=== PATIENT | male | born 1965 | race Caucasian/White ===

== ENCOUNTER → 2017-05-07 | Outpatient (CLI) | payer OTHER ==
--- NOTE | 2017-05-07 12:31 | XCELERA REPORT ---
[address] [address] Lower Extremity Arterial Evaluation Name: RICHARD SULLIVAN Age: 51 yrs Gender: Male : 1965 Patient Status: Outpatient Patient Location: Study Date: 05/07/2017 10:06 AM Procedure: A color flow and duplex scan of the lower extremity arteries was performed bilaterally with velocity and waveform analysis. Reason For Study: DYSPNEA, PAIN Ordering Physician: ABIODUN BAHENA PA-C Performed By: Raghav Botello Measurements and Calculations Right Left SENIOR ANDROID DEVELOPER PSV 154.9 196.1 cm/sec Prox PFA PSV -82.1 133.6 cm/sec Dist SFA PSV -128.9 -151.0 cm/sec Dist Pop A PSV 135.1 -117.0 cm/sec Dist HUEY PSV 127.1 97.6 cm/sec Dist DREDGE OPERATOR SUPERVISOR PSV 112.5 119.4 cm/sec Travis Pedis PSV 129.6 137.5 cm/sec Right Side Arterial Evaluation Normal velocity and triphasic waveforms noted from the Common Femoral artery to the infrageniculate vessels. 0 % stenosis noted. Ankle Brachial index is 1.36. Left Side Arterial Evaluation Normal velocity and triphasic waveforms noted from the Common Femoral artery to the infrageniculate vessels. 0 % stenosis noted. Ankle Brachial index is 1.36. Interpretation Summary There is no evidence of hemodynamically significant arterial occlusive disease bilaterally at rest. : ABIODUN BAHENA PA-C > Jose M Davis
--- NOTE | 2017-05-07 22:44 | XCELERA REPORT ---
[address] [address] Transthoracic Echocardiogram Report Name: RICHARD SULLIVAN Age: 51 yrs Gender: Male : 1965 Patient Status: Outpatient Patient Location: Study Date: 05/07/2017 09:33 AM Height: 69 in Weight: 240 lb BSA: 2.2 m2 Procedure: A complete two-dimensional transthoracic echocardiogram was performed (2D, M-mode, spectral and color flow Doppler). The study was technically difficult with many images being suboptimal in quality. Reason For Study: DYSPNEA, PAIN Ordering Physician: ABIODUN BAHENA PA-C Performed By: Raghav Botello Interpretation Summary The left ventricular ejection fraction is within normal limits. LV diastolic function could not be adequately assessed. There is borderline concentric left ventricular hypertrophy. The left ventricle is grossly normal size. Wall motion cannot be accurately commented on, but no definite regional wall motion abnormalities noted. The right ventricular systolic function is normal. Borderline right atrial enlargement. The left atrium is mildly dilated. There is no mitral valve stenosis. There is a trace to mild amount of mitral regurgitation There is no aortic valve stenosis No aortic regurgitation is present. There is a trace to mild amount of tricuspid regurgitation There is mild pulmonary hypertension by echo Best estimated right ventricular systolic pressure is elevated at 30- 40mmHg. The aortic root is not well visualized but is probably normal size. The inferior vena cava appeared normal and decreased > 50% with respiration (RAP 5-10 mmHg) Minimal pericardial effusion. MMode/2D Measurements \T\ Calculations RVDd: 2.7 cm LVIDd: 5.5 cm FS: 33.0 % Ao root diam: 3.2 cm IVSd: 0.98 cm LVIDs: 3.7 cm EDV(Teich): 148.1 ml LVPWd: 1.1 cm ESV(Teich): 57.8 ml Ao root area: 8.2 cm2 EF(Teich): 61.0 % LA dimension: 4.2 cm Doppler Measurements \T\ Calculations MV E max iain: MV P1/2t max iain: Ao V2 max: LV V1 max P.7 cm/sec 82.7 cm/sec 139.6 cm/sec 2.9 mmHg MV A max iain: MV P1/2t: 57.3 msec Ao max PG: LV V1 max: 69.7 cm/sec 7.8 mmHg 85.4 cm/sec MV E/A: 1.1 MVA(P1/2t): 3.8 cm2 MV dec slope: 422.6 cm/sec2 PA V2 max: TR max iain: RAP systole: 104.3 cm/sec 236.6 cm/sec 10.0 mmHg PA max PG: TR max P.5 mmHg 4.3 mmHg RVSP(TR): 32.5 mmHg Left Ventricle The left ventricle is grossly normal size. There is borderline concentric left ventricular hypertrophy. The left ventricular ejection fraction is within normal limits. LV diastolic function could not be adequately assessed. Wall motion cannot be accurately commented on, but no definite regional wall motion abnormalities noted. Right Ventricle The right ventricle is grossly normal size. There is normal right ventricular wall thickness. The right ventricular systolic function is normal. Atria Borderline right atrial enlargement. The left atrium is mildly dilated. Interarterial septum not well visualized and not well dopplered. Cannot comment on ASD/PFO presence. Mitral Valve The mitral valve is grossly normal. There is no mitral valve stenosis. There is a trace to mild amount of mitral regurgitation. Aortic Valve The aortic valve is grossly normal. There is no aortic valve stenosis. No aortic regurgitation is present. Tricuspid Valve The tricuspid valve is not well visualized, but is grossly normal. There is no tricuspid stenosis. There is a trace to mild amount of tricuspid regurgitation. There is mild pulmonary hypertension by echo. Best estimated right ventricular systolic pressure is elevated at 30-40mmHg. Pulmonic Valve The pulmonic valve is not well visualized. Great Vessels The aortic root is not well visualized but is probably normal size. The inferior vena cava appeared normal and decreased > 50% with respiration (RAP 5-10 mmHg). Effusions Minimal pericardial effusion. : ABIODUN BAHENA PA-C > Romana Garcia
== END ==
LOC: SP 09:14
PROVIDERS: ATTEND Physician Assistant
DX: R06.00 Dyspnea, unspecified (principal); M79.606 Pain in leg, unspecified
CPT/HCPCS: 93306; 93925

== ENCOUNTER 2017-09-09 16:11 | Emergency (ER) | payer OTHER ==
[2017-09-09] MEDS ORDERED: ONDANSETRON HCL INJ/PF 4 MG/2 ML SDV IV ONE (16:43)
[2017-09-09] MEDS ORDERED: NORMAL SALINE 1000 ML 1,000 ML IV ONE (16:43)
[2017-09-09] MEDS ORDERED: MORPHINE SULFATE 10 MG/ML INJ IV ONE ×3 (16:44→22:33)
--- NOTE | 2017-09-09 16:45 | ER Document Report ---
ED Medical Screen (RME) - General Chief Complaint: Back Pain Stated Complaint: SIDE PAIN AND SWELLING/POST BACK SURGERY Time Seen by Provider: 09/09/17 16:43 Notes: Patient had thoracic spine surgery approximately 1 week ago. Now he has swelling on both sides of his abdomen with severe pain. He denies any vomiting. He does have decreased appetite. He states his bowel movements are normal. He states he is taking oxycodone, Robaxin, Valium, and Neurontin but gets no relief of the pain. TRAVEL OUTSIDE OF THE [place] IN LAST 30 DAYS: No - Related Data Allergies/Adverse Reactions: amlodipine [From [employer]] Allergy (Verified 09/09/17 16:20) Past Medical History - Past Medical History Cardiac Medical History: Reports: Hx Coronary Artery Disease - had cath 2 yrs ago with a 40% lesion only, Hx Hypercholesterolemia, Hx Hypertension Denies: Hx Heart Attack Pulmonary Medical History: Reports: Hx Asthma - say asthma but I have scarring from radiation Denies: Hx Bronchitis, Hx COPD, Hx Pneumonia Neurological Medical History: Denies: Hx Cerebrovascular Accident, Hx Seizures Renal/ Medical History: Denies: Hx Peritoneal Dialysis Musculoskeltal Medical History: Reports Hx Arthritis Past Surgical History: Reports: Hx Orthopedic Surgery. Denies: Hx Pacemaker - Immunizations Hx Diphtheria, Pertussis, Tetanus Vaccination: Yes Physical Exam - Vital signs Vitals: Temp Pulse Resp BP Pulse Ox 98.7 F 72 18 118/59 L 97 09/09/17 16:20 09/09/17 16:20 09/09/17 16:20 09/09/17 16:20 09/09/17 16:20 Course - Vital Signs Vital signs: Temp Pulse Resp BP Pulse Ox 98.7 F 72 18 118/59 L 97 09/09/17 16:20 09/09/17 16:20 09/09/17 16:20 09/09/17 16:20 09/09/17 16:20
[2017-09-09 17:08] LABS: APPEARANCE,URINE CLEAR; BILIRUBIN,URINE NEGATIVE (NEGATIVE); GLUCOSE, URINE NEGATIVE (NEGATIVE); KETONES,URINE NEGATIVE (NEGATIVE); LEUKOCYTE ESTERASE,URINE NEGATIVE (NEGATIVE); NITRITE,URINE NEGATIVE (NEGATIVE); PROTEIN,URINE NEGATIVE (NEGATIVE); URINE SPECIFIC GRAVITY 1.014; UROBILINOGEN,URINE NEGATIVE mg/dL (<2.0)
[2017-09-09 17:20] LABS: ABSOLUTE BASOPHILS # (AUTO) 0.1 10^3/uL (0.0-0.2); ABSOLUTE EOSINOPHILS # (AUTO) 0.4 10^3/uL (0.0-0.6); ABSOLUTE LYMPHOCYTES (AUTO) 1.6 10^3/uL (0.5-4.7); ABSOLUTE MONOCYTES (AUTO) 0.6 10^3/uL (0.1-1.4); ABSOLUTE NEUT (AUTO) 6.1 10^3/uL (1.7-8.2); BASOPHILS % (AUTO) 1.2 % (0-2); EOSINOPHILS % (AUTO) 4.3 % (0-6); HEMATOCRIT 34.3 % (37.9-51.0); HEMOGLOBIN 11.8 g/dL (13.5-17.0); HGB HCT DIFFERENCE 1.1; MEAN CORPUSCULAR HEMOGLOBIN 27.4 pg (27.0-33.4); MEAN CORPUSCULAR HGB CONC 34.5 g/dL (32.0-36.0); MEAN CORPUSCULAR VOLUME 80 fl (80-97); MONOCYTES % (AUTO) 7.3 % (3-13); RED BLOOD COUNT 4.32 10^6/uL (4.35-5.55); RED CELL DISTRIBUTION WIDTH 13.6 % (11.5-14.0); SEGMENTED NEUTROPHILS % (AUTO) 69.2 % (42-78); WHITE BLOOD COUNT 8.7 10^3/uL (4.0-10.5)
[2017-09-09 17:53] LABS: ALANINE AMINOTRANSFERASE 73 U/L (21-72); ALBUMIN 4.1 g/dL (3.5-5.0); ALKALINE PHOSPHATASE 66 U/L (38-126); ANION GAP 15 (5-19); ASPARTATE AMINO TRANSFERASE 39 U/L (17-59); BILIRUBIN,DIRECT 0.4 mg/dL (0.0-0.4); BILIRUBIN,TOTAL 0.6 mg/dL (0.2-1.3); BLOOD UREA NITROGEN 14 mg/dL (7-20); CALCIUM 8.9 mg/dL (8.4-10.2); CARBON DIOXIDE 27 mmol/L (22-30); CHLORIDE 100 mmol/L (98-107); CREATININE RESULT 0.78 mg/dL (0.52-1.25); GLUCOSE 130 mg/dL (75-110); LIPASE 68.3 U/L (23-300); POTASSIUM 4.4 mmol/L (3.6-5.0); SODIUM 141.7 mmol/L (137-145); TOTAL PROTEIN 6.9 g/dL (6.3-8.2)
--- NOTE | 2017-09-09 18:57 | ER Document Report ---
ED Neck/Back Problem - General Chief Complaint: Back Pain Stated Complaint: SIDE PAIN AND SWELLING/POST BACK SURGERY Time Seen by Provider: 09/09/17 16:43 Mode of Arrival: Ambulatory Information source: Patient TRAVEL OUTSIDE OF THE [place] IN LAST 30 DAYS: No - HPI Patient complains to provider of: Pain, Upper back - AND FLANKS, MORE ON LEFT Onset: Last week Onset: Gradual Timing: Constant Quality of pain: Dull, Pressure, Other - SORENESS Severity: Moderate Associated symptoms: Fever - 100.9 F, NIGHTLY, Incontinence - CHRONIC, PRE- EXISTING, Sweaty Exacerbated by: Movement of trunk Relieved by: Remaining still Similar symptoms previously: No Recently seen / treated by doctor: Yes - SURGERY Notes: SPINAL SURGERY 09/01 @ [facility] (FUSION & FIXATION T-8 THRU T-11). PAIN BEGAN INCREASING THE DAY AFTER RETURNING HOME (09/06). - Related Data Allergies/Adverse Reactions: amlodipine [From [employer]] Allergy (Verified 09/09/17 16:20) Past Medical History - General Information source: Patient - Social History Smoking Status: Never Smoker Cigarette use (# per day): No Chew tobacco use (# tins/day): Yes Frequency of alcohol use: None Drug Abuse: None Lives with: Spouse/Significant other Family History: Reviewed & Not Pertinent Patient has suicidal ideation: No Patient has homicidal ideation: No - Past Medical History Cardiac Medical History: Reports: Hx Coronary Artery Disease - had cath 2 yrs ago with a 40% lesion only, Hx Hypercholesterolemia, Hx Hypertension Denies: Hx Heart Attack Pulmonary Medical History: Reports: Hx Asthma - say asthma but I have scarring from radiation Denies: Hx Bronchitis, Hx COPD, Hx Pneumonia Neurological Medical History: Denies: Hx Cerebrovascular Accident, Hx Seizures Endocrine Medical History: Reports: Hx Diabetes Mellitus Type 2 Renal/ Medical History: Reports: None. Denies: Hx Peritoneal Dialysis Malignancy Medical History: Reports Hx Lymphoma - [facility] Medical History: Reports: None Musculoskeltal Medical History: Reports Hx Arthritis Psychiatric Medical History: Reports: None Past Surgical History: Reports: Hx Orthopedic Surgery, Hx Tonsillectomy - uvula , adenoids. Denies: Hx Pacemaker - Immunizations Hx Diphtheria, Pertussis, Tetanus Vaccination: Yes Review of Systems - Review of Systems Constitutional: See HPI EENT: No symptoms reported Cardiovascular: No symptoms reported Respiratory: No symptoms reported Gastrointestinal: No symptoms reported. denies: Diarrhea, Nausea, Vomiting, Constipation Genitourinary: No symptoms reported Male Genitourinary: No symptoms reported Musculoskeletal: See HPI Skin: No symptoms reported Neurological/Psychological: See HPI Physical Exam - Vital signs Vitals: Temp Pulse Resp BP Pulse Ox 98.7 F 72 18 118/59 L 97 09/09/17 16:20 09/09/17 16:20 09/09/17 16:20 09/09/17 16:20 09/09/17 16:20 Interpretation: Normal. No: Tachycardic, Tachypneic, Febrile - General General appearance: Appears well, Alert In distress: None - HEENT Head: Normocephalic Eyes: Normal Conjunctiva: Normal Ears: Normal Nasal: Normal - Respiratory Respiratory status: No respiratory distress - Cardiovascular Rhythm: Regular - Abdominal Inspection: Obese Distension: No distension Tenderness: Tender - L. FLANK AND LLQ, SUPERFICIALLY - Neurological Neuro grossly intact: Yes - @ BASELINE, PER PATIENT Cognition: Normal Orientation: AAOx4 - Skin Skin Temperature: Warm Skin Moisture: Dry Skin Color: Normal Skin Turgor: Elastic Notes: SURGICAL DRESSING INTACT, NO UNUSUAL WARMTH OR REDNESS. Course - Vital Signs Vital signs: Temp Pulse Resp BP Pulse Ox 98.7 F 72 18 118/59 L 97 09/09/17 16:20 09/09/17 16:20 09/09/17 16:20 09/09/17 16:20 09/09/17 16:20 - Laboratory Result Diagrams: 09/09/17 17:10 09/09/17 17:10 Laboratory results interpreted by me: 09/09/17 09/09/17 17:10 17:10 RBC 4.32 L Hgb 11.8 L Hct 34.3 L Glucose 130 H ALT 73 H Discharge - Discharge Clinical Impression: Pain, flank, bilateral, Right flank tenderness, Left flank tenderness Condition: Stable Disposition: HOME, SELF-CARE Instructions: Flank Pain ([facility]), Oral Narcotic Medication ([facility]) Additional Instructions: REST, AVOID PAINFUL ACTIVITY. MEDS DIRECTED. FOLLOW UP WITH YOUR SURGEON SCHEDULED. RETURN TO E.R. FOR RE-EVALUATION IF ANY WORSENING OR NEW PROBLEMS, ANY TIME. Referrals: ABIODUN BAHENA PA-C [Primary Care Provider] - Follow up as needed
--- NOTE | 2017-09-09 20:39 | RADIOLOGY REPORT (SQ) ---
EXAM DESCRIPTION: CT ABD/PELVIS COMBO COMPLETED DATE/TIME: 09/09/2017 8:12 pm REASON FOR STUDY: L. FLANK PAIN SWELLING, FEVER. SPINAL SURG 09/01 COMPARISON: 2011. TECHNIQUE: CT scan of the abdomen and pelvis performed with and without intravenous contrast, and wi thout oral contrast. Contrasted imaging performed helical scanning technique and dynamic intravenous contrast injection. Images reviewed with lung, soft tissue, and bone windows. Reconstructed coronal a nd sagittal MPR images reviewed. Delayed images for evaluation of the urinary system also acquired. A ll images stored on PACS. All CT scanners at this facility use dose modulation, iterative reconstruction, and/or weight based d osing when appropriate to reduce radiation dose to as low as reasonably achievable (ALARA). [facility]: Dose Right [facility]: CareDose [facility]: Dose Right [facility]: Teradose 4D [facility]: [employer] CONTRAST TYPE AND DOSE: contrast/concentration: Isovue 370.00 mg/ml; Total Contrast Delivered: 100.0 ml; Total Saline Delivered: 38.0 ml RENAL FUNCTION: Creatinine 0.8 RADIATION DOSE: Up-to-date CT equipment and radiation dose reduction techniques were employed. CTDIv ol: 20.1 - 21.1 mGy. DLP: 3479 mGy-cm.. LIMITATIONS: None. FINDINGS: NON-CONTRASTED IMAGING: No renal or ureteral calculi identified. POST-CONTRASTED IMAGING: LOWER CHEST: Small pericardial cyst along the right heart border. Trace bilateral effusions, otherwi se clear lung bases. LIVER: Scattered apparent liver cysts. No enhancing lesions or duct dilatation. SPLEEN: Normal size. No focal lesions. PANCREAS: No masses. No significant calcifications. No adjacent inflammation or peripancreatic fluid collections. Pancreatic duct not dilated. GALLBLADDER: No identified stones by CT criteria. No inflammatory changes to suggest cholecystitis. ADRENAL GLANDS: No significant masses or asymmetry. RIGHT KIDNEY AND URETER: Homogeneous enhancement and excretion. No mass or obstruction. LEFT KIDNEY AND URETER: Homogeneous enhancement and excretion. No mass or obstruction. AORTA AND VESSELS: No aneurysm. No dissection. Renal arteries, SMA, celiac without stenosis. RETROPERITONEUM: No retroperitoneal adenopathy, hemorrhage or masses. BOWEL AND PERITONEAL CAVITY: No masses or inflammatory changes. No free fluid or peritoneal masses. APPENDIX: Normal. PELVIS: Bladder relatively decompressed but grossly normal. No pelvic free fluid or mass. Small fat containing bilateral inguinal hernias. ABDOMINAL WALL: No masses. No hernias. BONES: Extensive prior surgery with rods and screws through the lower thoracic region (new since prio r) and spanning the lumbar region (chronic). No suggestion of significant spinal malalignment. No e vidence of paraspinal mass or gross regional drainable collection. Electronic device with leads in t he dorsal soft tissues of the abdomen and lower chest. These leads course cranially and are incomple tely visualized. Presumed epidural leads. New since prior. OTHER: No other significant finding. IMPRESSION: 1. No acute or suspicious abdominopelvic abnormality. Specifically, no evidence of uri nary obstructions, stones or overt CT suggestion of pyelonephritis. 2. Extensive prior spinal instr umentation, some of which is new compared to 2012. No spinal malalignment or overtly worrisome bone lesion. No gross suggestion of paraspinal drainable fluid collection. TECHNICAL DOCUMENTATION: JOB ID: [id number] Quality ID # [id number]: Final reports with documentation of one or more dose reduction techniques (e.g., Au tomated exposure control, adjustment of the mA and/or kV according to patient size, use of iterative reconstruction technique) 2010 [employer]- All Rights Reserved
[2017-09-09 23:28] VITALS: BP 119/66
== END 2017-09-09 23:02 | disposition home or self-care (01) ==
LOC: ER 16:11
DX: R10.9 Unspecified abdominal pain (principal); E66.9 Obesity, unspecified; I25.10 Atherosclerotic heart disease of native coronary artery without angina pectoris; E78.00 Pure hypercholesterolemia, unspecified; I10 Essential (primary) hypertension; E11.9 Type 2 diabetes mellitus without complications; Z85.71 Personal history of Hodgkin lymphoma; Z98.1 Arthrodesis status; Z98.890 Other specified postprocedural states
CPT/HCPCS: 96376; 99284; 96361; 96374; 96375; 36415; 83690; 85025; 80053; 81001; 74178; J2270; J2405; J7030

== ENCOUNTER → 2017-12-17 | Outpatient (CLI) | payer OTHER ==
--- NOTE | 2017-12-17 11:40 | RADIOLOGY REPORT (SQ) ---
EXAM DESCRIPTION: U/S ABDOMEN COMPLETE W/O DOP COMPLETED DATE/TIME: 12/17/2017 11:06 am REASON FOR STUDY: R10.10 UPPER ABDOMINAL PAIN, UNSPECIFIED R10.10 UPPER ABDOMINAL PAIN, UNSPECIFIED COMPARISON: CT abdomen pelvis 09/09/2017 TECHNIQUE: Dynamic and static grayscale images acquired of the abdomen and recorded on PACS. Additio nal selected color Doppler and spectral images recorded. LIMITATIONS: Midline bowel gas FINDINGS: PANCREAS: Midline pancreas not well seen LIVER: No masses. Echotexture normal. Multiple benign hepatic cysts, the largest is subdiaphragmatic right lobe liver 1.5 cm in size LIVER VASCULATURE: Normal directional flow of the main portal vein and hepatic veins. GALLBLADDER: No stones. Normal wall thickness. No pericholecystic fluid. ULTRASOUND-DETECTED MULLINS'S SIGN: Negative. INTRAHEPATIC DUCTS AND COMMON DUCT: CBD and intrahepatic ducts normal caliber. No filling defects. INFERIOR VENA CAVA: Normal flow. AORTA: No aneurysm. RIGHT KIDNEY: Normal size. Normal echogenicity. No solid or suspicious masses. No hydronephros is. No calcifications. LEFT KIDNEY: Normal size. Normal echogenicity. No solid or suspicious masses. No hydronephrosi s. No calcifications. SPLEEN: 14 cm in length, mildly enlarged. No solid masses. PERITONEAL AND PLEURAL SPACES: No ascites or effusions. OTHER: No other significant finding. IMPRESSION: No ultrasound findings to explain history of upper abdominal pain. Incidental finding of benign hepatic cysts, and mild splenomegaly. TECHNICAL DOCUMENTATION: JOB ID: [id number] [employer]- All Rights Reserved
== END ==
LOC: RAD 10:50
PROVIDERS: ATTEND Physician Assistant
DX: R10.10 Upper abdominal pain, unspecified (principal); K76.89 Other specified diseases of liver; R16.1 Splenomegaly, not elsewhere classified
CPT/HCPCS: 76700

== ENCOUNTER → 2017-12-17 | Outpatient (CLI) | payer OTHER ==
[2017-12-17 12:02] LABS: ALANINE AMINOTRANSFERASE 47 U/L (21-72); ALBUMIN 4.1 g/dL (3.5-5.0); ALKALINE PHOSPHATASE 59 U/L (38-126); ANION GAP 11 (5-19); ASPARTATE AMINO TRANSFERASE 20 U/L (17-59); BILIRUBIN,DIRECT 0.2 mg/dL (0.0-0.4); BILIRUBIN,TOTAL 0.2 mg/dL (0.2-1.3); BLOOD UREA NITROGEN 8 mg/dL (7-20); CALCIUM 9.5 mg/dL (8.4-10.2); CARBON DIOXIDE 21 mmol/L (22-30); CHLORIDE 108 mmol/L (98-107); GLUCOSE 174 mg/dL (75-110); POTASSIUM 4.1 mmol/L (3.6-5.0); SODIUM 140.1 mmol/L (137-145); TOTAL PROTEIN 6.5 g/dL (6.3-8.2)
== END ==
LOC: LAB 11:07
PROVIDERS: ATTEND Physician Assistant
DX: R19.7 Diarrhea, unspecified (principal); Z79.899 Other long term (current) drug therapy
CPT/HCPCS: 36415; 80053; 87045; 87205; 87324

== ENCOUNTER → 2018-01-20 | Outpatient (CLI) | payer OTHER ==
--- NOTE | 2018-01-20 08:44 | RADIOLOGY REPORT (SQ) ---
EXAM DESCRIPTION: CT ABD/PELVIS WITH IV ORAL COMPLETED DATE/TIME: 01/20/2018 8:14 am REASON FOR STUDY: GENERALIZED INTRA-ABD AND PELVIC SWELLING, MASS AND LUMP (R19.07) R19.07 GENERALI ZED INTRA-ABD AND PELVIC SWELLING, MASS AND L COMPARISON: 09/09/2017, 10/22/2012, and 10/29/2010. TECHNIQUE: CT scan of the abdomen and pelvis performed using helical scanning technique with dynamic intravenous contrast injection. No oral contrast. Images reviewed with lung, soft tissue, and bone windows. Reconstructed coronal and sagittal MPR images reviewed. Delayed images for evaluation of the urinary system also acquired. All images stored on PACS. All CT scanners at this facility use dose modulation, iterative reconstruction, and/or weight based d osing when appropriate to reduce radiation dose to as low as reasonably achievable (ALARA). [facility]: Dose Right [facility]: CareDose [facility]: Dose Right [facility]: Teradose 4D [facility]: ON-S [employer] CONTRAST TYPE AND DOSE: contrast/concentration: Isovue 370.00 mg/ml; Total Contrast Delivered: 100.0 ml; Total Saline Delivered: 72.0 ml RENAL FUNCTION: Creatinine 0.7. RADIATION DOSE: CT Rad equipment meets quality standard of care and radiation dose reduction techniq ues were employed. CTDIvol: 24.1 - 25.8 mGy. DLP: 2874 mGy-cm.. LIMITATIONS: None. FINDINGS: LOWER CHEST: No significant findings. No nodules or infiltrates. Stable cyst in the right cardiophrenic angle, unchanged for several years. LIVER: Normal size. Stable hepatic cysts. No masses. No dilated ducts. SPLEEN: Normal size. No focal lesions. PANCREAS: No masses. No significant calcifications. No adjacent inflammation or peripancreatic fluid collections. Pancreatic duct not dilated. GALLBLADDER: No identified stones by CT criteria. No inflammatory changes to suggest cholecystitis. ADRENAL GLANDS: No significant masses or asymmetry. RIGHT KIDNEY AND URETER: No solid masses. No significant calcifications. No hydronephrosis or hyd roureter. LEFT KIDNEY AND URETER: No solid masses. No significant calcifications. No hydronephrosis or hydr oureter. AORTA AND VESSELS: No aneurysm. No dissection. Renal arteries, SMA, celiac without stenosis. RETROPERITONEUM: No retroperitoneal adenopathy, hemorrhage or masses. BOWEL AND PERITONEAL CAVITY: No masses or inflammatory changes. No free fluid or peritoneal masses. APPENDIX: Normal. PELVIS: No mass. No free fluid. Normal bladder. ABDOMINAL WALL: No masses. Defect in the posterior musculature of the right flank extending from the iliac crest superiorly. Maximum craniocaudal extent is 12 cm and width of the opening is 8 cm. Her niation of peritoneal fat with no herniation of the adjacent bowel or solid organs. This was present in October 2012 but not in October 2010. BONES: No significant or acute findings. Extensive surgical changes in the spine with extensive hard junior. Spinal stimulator. OTHER: No other significant finding. IMPRESSION: 1. DEFECT IN THE POSTERIOR MUSCULATURE OF THE RIGHT FLANK DESCRIBED, PRESENT FOR SEVERAL YEARS. H ERNIATION OF PERITONEAL FAT BUT NO HERNIATION OF THE ADJACENT BOWEL OR SOLID ORGANS. 2. MULTIPLE HEPATIC CYSTS. 3. STABLE CYST IN THE RIGHT CARDIOPHRENIC ANGLE. 4. EXTENSIVE SURGICAL CHANGES AND HARDWARE IN THE SPINE. 5. NO OTHER SIGNIFICANT OR ACUTE FINDING IN THE ABDOMEN OR PELVIS ON CT SCAN WITH IV CONTRAST. TECHNICAL DOCUMENTATION: JOB ID: [id number] Quality ID # [id number]: Final reports with documentation of one or more dose reduction techniques (e.g., Au tomated exposure control, adjustment of the mA and/or kV according to patient size, use of iterative reconstruction technique) 2010 [employer]- All Rights Reserved Reading location - IP/workstation name: [email or web address]
== END ==
LOC: RAD 07:32
PROVIDERS: ATTEND Physician Assistant
DX: R19.07 Generalized intra-abdominal and pelvic swelling, mass and lump (principal)
CPT/HCPCS: 74177; 82565

== ENCOUNTER 2018-03-17 14:58 | Emergency (ER) | payer OTHER ==
[2018-03-17 15:06] VITALS: BP 150/72
--- NOTE | 2018-03-17 16:35 | ER Document Report ---
HPI - HPI Pain Level: 3 Notes: Patient is a 52-year-old male with a history of hypertension, diabetes type 2, hypercholesteremia, essentially fused from C1-S1 per patient. Patient states that he has had extensive back and neck surgeries and has chronic pain which she is on pain medication and muscle relaxers for as well as Neurontin. Pain does not radiate. Patient states that 2 days ago he lost his balance and fell on his back and rolled his left ankle/foot. Patient states that he has chronic issues with his left lower leg status post surgeries with weakness. Patient states that he did not hit his head or lose consciousness. He has not had any nausea or vomiting. He is eating and drinking without any difficulties. He is urinating normally and having normal bowel movements. Patient states that he is still ambulatory with assistance from a single-point cane. No other concerns or complaints at this time. Denies any headache, fever, URI, sore throat, chest pain, palpitations, syncope, cough, shortness of breath, wheeze, dyspnea, abdominal pain, nausea/vomiting/diarrhea, urinary retention, dysuria, hematuria, loss of control of bowel or bladder, numbness/tingling, saddle anesthesia, muscle paralysis, or rash. - ROS Systems Reviewed and Negative: Yes All other systems reviewed and negative Past Medical History - Social History Smoking Status: Never Smoker Family History: Reviewed & Not Pertinent - Past Medical History Cardiac Medical History: Reports: Hx Coronary Artery Disease - had cath 2 yrs ago with a 40% lesion only, Hx Hypercholesterolemia, Hx Hypertension Denies: Hx Heart Attack Pulmonary Medical History: Reports: Hx Asthma - say asthma but I have scarring from radiation Denies: Hx Bronchitis, Hx COPD, Hx Pneumonia Neurological Medical History: Denies: Hx Cerebrovascular Accident, Hx Seizures Endocrine Medical History: Reports: Hx Diabetes Mellitus Type 2 Renal/ Medical History: Denies: Hx Peritoneal Dialysis Malignancy Medical History: 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 Denies: Hx Pacemaker - Immunizations Hx Diphtheria, Pertussis, Tetanus Vaccination: Yes Vertical Provider Document - CONSTITUTIONAL Agree With Documented VS: Yes Notes: PHYSICAL EXAMINATION: GENERAL: Well-appearing, well-nourished and in no acute distress. A&Ox4. Answers questions appropriately. HEAD: Atraumatic, normocephalic. Non-tender. No cuevas sign EYES: Pupils equal round and reactive to light, extraocular movements intact, sclera anicteric, conjunctiva are normal. No raccoon eyes/entrapment ENT: EAC clear b/l. TM's intact b/l without erythema, fluid, or perforation. Nares patent and without discharge. oropharynx clear without exudates. No tonsilar hypertrophy or erythema. Moist mucous membranes. No sinus tenderness. No hemotympanum/CSF discharge. NECK: Normal range of motion, supple without lymphadenopathy. No rigidity. No midline tenderness. Spurling negative. NEXUS negative. + mild tenderness to the c-paraspinal mm into the traps b/l and inferiorly. Chest: No flail chest. equal rise/fall. Non-tender LUNGS: Breath sounds clear to auscultation bilaterally and equal. No wheezes rales or rhonchi. HEART: Regular rate and rhythm without murmurs, rubs, gallops. ABDOMEN: Soft, nontender, nondistended abdomen. No guarding, no rebound. No masses appreciated. Normal bowel sounds present. No CVA tenderness bilaterally. no pulsatile mass Musculoskeletal: Left ankle/foot: FROM. Strength 4+/5, usual for him per pt. Achilles intact. + mild ecchmosis dorsal foot. + tenderness to the lateral malleolus and dorsal foot. N/V intact distal. Ext's otherwise b/l: FROM to passive/active. Strength 5+/5. No focal deficits noted otherwise. Back: + surgical scars noted from neck to L-spine. LROM to passive/active. Strength 5+/5. + tenderness to the Tspine, midline and paraspinal. + spasming. No other bony tenderness or ecchymosis. SLR negative b/l. Extremities: No cyanosis, clubbing, or edema b/l. Peripheral pulses 2+. Capillary refill less than 2 seconds. NEUROLOGICAL: NIH 0. GCS 15. Cranial nerves grossly intact. Normal speech, ataxic gait but able to weight bear and ambulate. Normal sensory, motor exams. Reflexes 1+ b/l LE's. AVERY's negative. Pronator drift negative. PSYCH: Normal mood, normal affect. SKIN: Warm, Dry, normal turgor, no rashes or lesions noted. - INFECTION CONTROL TRAVEL OUTSIDE OF THE [place] IN LAST 30 DAYS: No Course - Re-evaluation Re-evalutation: 03/17/18 16:[address] Andrews. We will obtain a T-spine XR vs CT. Added a foot and ankle as well. 03/17/18 17:15 Patient is an afebrile, well-hydrated, 52-year-old male who presents to the ED with thoracic back pain, left ankle pain, and left foot pain status post injury , suspect inflammatory. Vitals are acceptable. PE is otherwise unremarkable for any focal neurological deficits, neurovascular compromise, obvious tendon/ ligament rupture, obvious fracture/dislocation. X-ray of the T-spine, ankle, and foot were unremarkable for any acute pathology. Patient is able to ambulate and weight-bear. No other labs or imaging warranted at this time based on H&P. Conservative measures otherwise for symptoms. Recheck with your PCM in 3-5 days. Consider consult orthopedic/physical therapy. Patient has high ankle boot on and declines an ankle stirrup at this time. Return to the ED with any worsening/concerning symptoms otherwise as reviewed discharge. Patient is in agreement. - Vital Signs Vital signs: Temp Pulse Resp BP Pulse Ox 99.1 F 87 16 150/72 H 97 03/17/18 15:03 03/17/18 15:03 03/17/18 15:03 03/17/18 15:03 03/17/18 15:03 Discharge - Discharge Clinical Impression: Left foot pain Thoracic back pain Qualifiers: Chronicity: acute Back pain laterality: bilateral Qualified Code(s): M54.6 - Pain in thoracic spine Left ankle pain Qualifiers: Chronicity: acute Qualified Code(s): M25.572 - Pain in left ankle and joints of left foot Condition: Stable Disposition: HOME, SELF-CARE Instructions: Ice & Elevation ([facility]) Additional Instructions: Rest, Ice, Compression, Elevation Use cane to ambulate as you usual do Tylenol/ibuprofen as needed Light stretches daily Strength exercises as able Moist heat and massage may help F/u with your PCP in 3-5 days for a recheck Consider consult(s) with Orthopedics/physical therapy for ongoing/worsening symptoms Return to the ED with any worsening symptoms and/or development of fever, headache, chest pain, palpitations, syncope, shortness of breath, trouble breathing, abdominal pain, n/v/d, blood in stool/urine, loss of control of bowel /bladder, urinary retention, muscle weakness/paralysis, saddle anesthesia, numbness/tingling, or other worsening symptoms that are concerning to you. Forms: Elevated Blood Pressure Referrals: ALON BAHENA MD [Primary Care Provider] - Follow up in 3-5 days [facility] [Provider Group] - Follow up as needed
--- NOTE | 2018-03-17 17:09 | RADIOLOGY REPORT (SQ) ---
EXAM DESCRIPTION: FOOT LEFT COMPLETE COMPLETED DATE/TIME: 03/17/2018 5:01 pm REASON FOR STUDY: pain s/p fall COMPARISON: None. NUMBER OF VIEWS: Three views. TECHNIQUE: AP, lateral and oblique radiographic images acquired of the left foot. LIMITATIONS: None. FINDINGS: MINERALIZATION: Normal. BONES: No acute fracture or dislocation. No worrisome bone lesions. Plantar calcaneal spurring. JOINTS: No effusions. SOFT TISSUES: No soft tissue swelling. No foreign body. OTHER: No other significant finding. IMPRESSION: CALCANEAL SPURRING. NO RADIOGRAPHIC EVIDENCE OF ACUTE INJURY. TECHNICAL DOCUMENTATION: JOB ID: [id number] [employer]- All Rights Reserved Reading location - IP/workstation name: [email or web address]
--- NOTE | 2018-03-17 17:09 | RADIOLOGY REPORT (SQ) ---
EXAM DESCRIPTION: ANKLE LEFT COMPLETE COMPLETED DATE/TIME: 03/17/2018 5:01 pm REASON FOR STUDY: pain s/p fall COMPARISON: None. NUMBER OF VIEWS: Three views. TECHNIQUE: AP, lateral, and oblique radiographic images acquired of the left ankle. LIMITATIONS: None. FINDINGS: MINERALIZATION: Normal. BONES: No acute fracture or dislocation. No worrisome bone lesions. Plantar calcaneal spurring. JOINTS: No effusions. SOFT TISSUES: No soft tissue swelling. No foreign body. OTHER: No other significant finding. IMPRESSION: CALCANEAL SPURRING. NO RADIOGRAPHIC EVIDENCE OF ACUTE INJURY. TECHNICAL DOCUMENTATION: JOB ID: [id number] [employer] All Rights Reserved Reading location - IP/workstation name: [email or web address]
--- NOTE | 2018-03-17 17:10 | RADIOLOGY REPORT (SQ) ---
EXAM DESCRIPTION: T SPINE AP/LAT COMPLETED DATE/TIME: 03/17/2018 5:01 pm REASON FOR STUDY: pain s/p fall, h/o fusion COMPARISON: None. NUMBER OF VIEWS: Two views. TECHNIQUE: AP and lateral radiographic images acquired of the thoracic spine. LIMITATIONS: None. FINDINGS: MINERALIZATION: Normal. ALIGNMENT: Normal. No scoliosis. VERTEBRAE: No fracture or bone lesion. Maintained height, normal segmentation. DISCS: Multilevel disc space narrowing with osteophytes. HARDWARE: Intact. MEDIASTINUM AND SOFT TISSUES: Normal heart size and aortic contour. No soft tissue abnormality. VISUALIZED LUNG CARDOZO: Clear. OTHER: No other significant finding. IMPRESSION: SPONDYLOSIS WITHOUT BONE LESION OR FRACTURE. NO HARDWARE COMPLICATION. TECHNICAL DOCUMENTATION: JOB ID: [id number] [employer]- All Rights Reserved Reading location - IP/workstation name: [email or web address]
== END 2018-03-17 17:56 | disposition home or self-care (01) ==
LOC: ER 14:58
DX: M79.672 Pain in left foot (principal); M25.572 Pain in left ankle and joints of left foot; M54.6 Pain in thoracic spine; M54.9 Dorsalgia, unspecified; M54.2 Cervicalgia; G89.29 Other chronic pain; R53.1 Weakness; W19.XXXA Unspecified fall, initial encounter; Z98.890 Other specified postprocedural states; Z79.899 Other long term (current) drug therapy; I25.10 Atherosclerotic heart disease of native coronary artery without angina pectoris; I10 Essential (primary) hypertension; E11.9 Type 2 diabetes mellitus without complications; E78.00 Pure hypercholesterolemia, unspecified; J45.909 Unspecified asthma, uncomplicated
CPT/HCPCS: 72070; 99283

== ENCOUNTER → 2018-05-22 | Outpatient (CLI) | payer OTHER ==
--- NOTE | 2018-05-22 16:21 | RADIOLOGY REPORT (SQ) ---
EXAM DESCRIPTION: U/S THYROID/SFT TISS HD NECK COMPLETED DATE/TIME: 05/22/2018 3:56 pm REASON FOR STUDY: HYPOTHYROIDISM, UNSPECIFIED E03.9 HYPOTHYROIDISM, UNSPECIFIED COMPARISON: None. TECHNIQUE: Dynamic and static livingston-scale images acquired of the thyroid gland. Selected additional c olor/power Doppler images recorded. All images stored to PACS. LIMITATIONS: None. FINDINGS: RIGHT LOBE: Normal size, 4.2 x 1.5 x 1.2 cm. Heterogeneous echotexture. There is a 5 mm lower pole cyst. No solid masses. LEFT LOBE: Normal size, 4 x 2.2 x 2.4 cm. Heterogeneous echotexture. There is a 9 mm cyst in the mi dportion of the left lobe. ISTHMUS: Prominent, 7.3 mm. Heterogeneous echotexture. No cystic or solid masses. OTHER: No other significant finding. IMPRESSION: The gland demonstrates heterogeneous echotexture. A couple small cysts are present. TECHNICAL DOCUMENTATION: JOB ID: [id number] [employer]- All Rights Reserved Reading location - IP/workstation name: [email or web address]
== END ==
LOC: RAD 15:26
PROVIDERS: ATTEND Physician Assistant
DX: E03.9 Hypothyroidism, unspecified (principal); E04.1 Nontoxic single thyroid nodule
CPT/HCPCS: 76536

== ENCOUNTER → 2018-11-18 | Outpatient (CLI) | payer OTHER ==
--- NOTE | 2018-11-18 11:55 | RADIOLOGY REPORT (SQ) ---
EXAM DESCRIPTION: CHEST 2 VIEWS COMPLETED DATE/TIME: 11/18/2018 11:31 am REASON FOR STUDY: COUGH COMPARISON: 04/06/2013 EXAM PARAMETERS: NUMBER OF VIEWS: two views TECHNIQUE: Digital Frontal and Lateral radiographic views of the chest acquired. RADIATION DOSE: NA LIMITATIONS: none FINDINGS: LUNGS AND PLEURA: No opacities, masses or pneumothorax. No pleural effusion. MEDIASTINUM AND HILAR STRUCTURES: No masses or contour abnormalities. HEART AND VASCULAR STRUCTURES: Heart normal size. No evidence for failure. BONES: Cervicothoracolumbar fusion hardware. Findings. HARDWARE: Cervicothoracolumbar fusion hardware. Spinal stimulator device. OTHER: Unchanged soft tissue fullness along the posterior mid thoracic subcutaneous tissue IMPRESSION: No evidence of focal airspace disease or other acute cardiopulmonary process. TECHNICAL DOCUMENTATION: JOB ID: [id number] [employer]- All Rights Reserved Reading location - IP/workstation name: [email or web address]
== END ==
LOC: RAD 11:12
PROVIDERS: ATTEND Physician Assistant
DX: R05 Cough (principal)
CPT/HCPCS: 71046

== ENCOUNTER 2019-08-09 13:05 | Emergency (ER) | payer MEDICARE, OTHER ==
--- NOTE | 2019-08-09 15:17 | ER Document Report ---
ED Medical Screen (RME) - General Stated Complaint: LOWER ABDOMINAL PAIN Time Seen by Provider: 08/09/19 15:12 Primary Care Provider: ABIODUN ABHENA PA-C [Primary Care Provider] - Follow up as needed TRAVEL OUTSIDE OF THE [place] IN LAST 30 DAYS: No - HPI Notes: 08/09/19 15:16 Patient is a 54-year-old male with a history of hypertension, diabetes type 2, hypercholesteremia, essentially fused from C1-S1 per patient who presents complaining of right lower quadrant pain that feels like a burning pain that is been present for the past 2 days. Patient is on occasion he will feel pain in his back and into the right thigh as well. He is not sure if these things are related or not. He is able to eat and drink without difficulty. He is urinating normally and having normal bowel movement no melena or hematochezia. Denies fever. I have treated and performed a rapid initial assessment of this patient. A comprehensive ED assessment and evaluation of the patient, analysis of test results and completion of medical decision making process will be conducted by additional ED providers. PHYSICAL EXAMINATION: GENERAL: Well-appearing, well-nourished and in no acute distress. A&Ox4. Answers questions appropriately. - Related Data Allergies/Adverse Reactions: [facility] [[facility]] Allergy (Verified 08/09/19 15:04) Past Medical History - Social History Chew tobacco use (# tins/day): Yes Frequency of alcohol use: Rare Drug Abuse: None - Past Medical History Cardiac Medical History: Reports: Hx Coronary Artery Disease - had cath 2 yrs ago with a 40% lesion only, Hx Hypercholesterolemia, Hx Hypertension Denies: Hx Heart Attack Pulmonary Medical History: Reports: Hx Asthma - say asthma but I have scarring from radiation Denies: Hx Bronchitis, Hx COPD, Hx Pneumonia Neurological Medical History: Denies: Hx Cerebrovascular Accident, Hx Seizures Endocrine Medical History: Reports: Hx Diabetes Mellitus Type 2 Renal/ Medical History: Denies: Hx Peritoneal Dialysis Malignancy Medical History: 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 Denies: Hx Pacemaker - Immunizations Hx Diphtheria, Pertussis, Tetanus Vaccination: Yes History of Influenza Vaccine for 08/2017 - 01/2018 Season: No Physical Exam - Vital signs Vitals: Temp Pulse Resp BP Pulse Ox 98.0 F 84 20 131/67 H 98 08/09/19 13:58 08/09/19 13:58 08/09/19 13:58 08/09/19 13:58 08/09/19 13:58 Course - Vital Signs Vital signs: Temp Pulse Resp BP Pulse Ox 98.0 F 84 20 131/67 H 98 08/09/19 13:58 08/09/19 13:58 08/09/19 13:58 08/09/19 13:58 08/09/19 13:58 Doctor's Discharge - Discharge Referrals: ABIODUN BAHENA PA-C [Primary Care Provider] - Follow up as needed
[2019-08-09 16:17] LABS: APPEARANCE,URINE CLEAR; BILIRUBIN,URINE NEGATIVE (NEGATIVE); COLOR,URINE YELLOW; GLUCOSE, URINE NEGATIVE (NEGATIVE); KETONES,URINE NEGATIVE (NEGATIVE); LEUKOCYTE ESTERASE,URINE NEGATIVE (NEGATIVE); NITRITE,URINE NEGATIVE (NEGATIVE); PROTEIN,URINE NEGATIVE (NEGATIVE); UROBILINOGEN,URINE NEGATIVE mg/dL (<2.0)
--- NOTE | 2019-08-09 17:24 | ER Document Report ---
Entered by DIANNE MELO SCRIBE 08/09/19 [id number] Acting as scribe for:YASMIN LOPEZ MD ED General - General Chief Complaint: Lower Abdominal Pain Stated Complaint: LOWER ABDOMINAL PAIN Time Seen by Provider: 08/09/19 15:12 Primary Care Provider: ABIODUN BAHENA PA-C [Primary Care Provider] - Follow up as needed Information source: Patient Notes: 54-year-old male who presents to the emergency department today with complaints of pain in his right lower quadrant that comes and goes for the last two days. Patient states it feels like a "lightning bolt" when the pain begins. Patient states the pain lasts for about 30 seconds and stays gone for anywhere from a fe w seconds to up to about 20-30 minutes. Patient states the pain seems to radiate to his right thigh in a straight line only on the anterior surface of the right thigh, stating this pain feels like "scalding water". Patient states he has been nauseated but denies any vomiting. TRAVEL OUTSIDE OF THE [place] IN LAST 30 DAYS: No - Related Data Allergies/Adverse Reactions: amlodipine [From [facility]] Allergy (Verified 08/09/19 15:04) Past Medical History - General Information source: Patient - Social History Smoking Status: Former Smoker Cigarette use (# per day): No Chew tobacco use (# tins/day): Yes Frequency of alcohol use: Rare Drug Abuse: None Lives with: Family Family History: Reviewed & Not Pertinent Patient has suicidal ideation: No Patient has homicidal ideation: No - Past Medical History Cardiac Medical History: Reports: Hx Coronary Artery Disease - had cath 2 yrs ago with a 40% lesion only, Hx Hypercholesterolemia, Hx Hypertension Pulmonary Medical History: Reports: Hx Asthma - say asthma but I have scarring from radiation Endocrine Medical History: Reports: Hx Diabetes Mellitus Type 2 Malignancy Medical History: Reports Hx Colorectal Cancer - dx 2011, 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 denies: Vomiting Genitourinary: No symptoms reported Male Genitourinary: No symptoms reported Musculoskeletal: See HPI, Other - RLE pain Skin: No symptoms reported Hematologic/Lymphatic: No symptoms reported Neurological/Psychological: No symptoms reported -: Yes All other systems reviewed and negative Physical Exam - Vital signs Vitals: Temp Pulse Resp BP Pulse Ox 98.0 F 84 20 131/67 H 98 08/09/19 13:58 08/09/19 13:58 08/09/19 13:58 08/09/19 13:58 08/09/19 13:58 - Notes Notes: Physical Exam: General: Alert, morbidly obese. HEENT: Normocephalic. Atraumatic. PERRL. Extraocular movements intact. Oropharynx clear. Neck: Supple. Non-tender. Respiratory: No respiratory distress. Clear and equal breath sounds bilaterally. Cardiovascular: Regular rate and rhythm. Abdominal: Normal Inspection. Non-tender. No distension. Normal Bowel Sounds. Back: No gross abnormalities. Extremities: Moves all four extremities. Upper extremities: Normal inspection. Normal ROM. Lower extremities: Normal inspection. No edema. Normal ROM. Calves are symmetric in size bilaterally. Neurological: Normal cognition. AAOx4. Normal speech. No sensory changes over right thigh. Psychological: Normal affect. Normal Mood. Skin: Warm. Dry. Normal color. Course - Vital Signs Vital signs: Temp Pulse Resp BP Pulse Ox 98.0 F 84 20 131/67 H 98 08/09/19 13:58 08/09/19 13:58 08/09/19 13:58 08/09/19 13:58 08/09/19 13:58 - Laboratory Result Diagrams: 08/09/19 17:56 08/09/19 17:56 Laboratory results interpreted by me: 08/09/19 08/09/19 17:56 17:56 Hgb 12.6 L Hct 37.4 L MCV 78 L MCH 26.3 L RDW 14.3 H Plt Count 146 L Glucose 120 H - Diagnostic Test Radiology reviewed: Image reviewed, Reports reviewed - IV contrasted CT scan of the abdomen pelvis did not show any acute processes. Discharge - Discharge Clinical Impression: Abdominal pain Qualifiers: Abdominal location: right lower quadrant Qualified Code(s): R10.31 - Right lower quadrant pain Condition: Stable Disposition: HOME, SELF-CARE Additional Instructions: The lab work that was done today was unremarkable. The IV contrasted CT scan of the abdomen and pelvis did not show any acute abnormalities. The discomfort you describe in your right lower abdomen and anterior thigh, sounds like irritation of a nerve, such as the lateral femoral cutaneous nerve of the thigh. You should continue your regularly scheduled medications. If the problem does not improve, then follow-up with your primary care provider, your neurologist or your surgeon. RETURN TO THE EMERGENCY ROOM IF ANY NEW OR WORSENING SYMPTOMS. Referrals: ABIODUN BAHENA PA-C [Primary Care Provider] - Follow up as needed Scribe Attestation: 08/09/19 17:24 I personally performed the services described in the documentation, reviewed and edited the documentation which was dictated to the scribe in my presence, and it accurately records my words and actions. I personally performed the services described in the documentation, reviewed and edited the documentation which was dictated to the scribe in my presence, and it accurately records my words and actions.
[2019-08-09 18:20] LABS: ABSOLUTE BASOPHILS # (AUTO) 0.1 10^3/uL (0.0-0.2); ABSOLUTE EOSINOPHILS # (AUTO) 0.2 10^3/uL (0.0-0.6); ABSOLUTE LYMPHOCYTES (AUTO) 2.1 10^3/uL (0.5-4.7); ABSOLUTE MONOCYTES (AUTO) 0.6 10^3/uL (0.1-1.4); ABSOLUTE NEUT (AUTO) 3.7 10^3/uL (1.7-8.2); EOSINOPHILS % (AUTO) 2.5 % (0-6); HEMATOCRIT 37.4 % (37.9-51.0); HEMOGLOBIN 12.6 g/dL (13.5-17.0); LYMPHOCYTES % (AUTO) 31.2 % (13-45); MEAN CORPUSCULAR HEMOGLOBIN 26.3 pg (27.0-33.4); MEAN CORPUSCULAR HGB CONC 33.6 g/dL (32.0-36.0); MEAN CORPUSCULAR VOLUME 78 fl (80-97); MONOCYTES % (AUTO) 8.8 % (3-13); PLATELET COUNT 146 10^3/uL (150-450); RED BLOOD COUNT 4.78 10^6/uL (4.35-5.55); RED CELL DISTRIBUTION WIDTH 14.3 % (11.5-14.0); SEGMENTED NEUTROPHILS % (AUTO) 56.5 % (42-78); TOTAL CELLS COUNTED % (AUTO) 100 %; WHITE BLOOD COUNT 6.6 10^3/uL (4.0-10.5)
[2019-08-09 18:42] LABS: ALBUMIN 4.1 g/dL (3.5-5.0); ALKALINE PHOSPHATASE 52 U/L (38-126); ANION GAP 10 (5-19); ASPARTATE AMINO TRANSFERASE 52 U/L (17-59); BILIRUBIN,DIRECT 0.1 mg/dL (0.0-0.4); BILIRUBIN,TOTAL 0.6 mg/dL (0.2-1.3); BLOOD UREA NITROGEN 15 mg/dL (7-20); CALCIUM 8.9 mg/dL (8.4-10.2); CARBON DIOXIDE 26 mmol/L (22-30); CHLORIDE 103 mmol/L (98-107); GLUCOSE 120 mg/dL (75-110); POTASSIUM 3.9 mmol/L (3.6-5.0); TOTAL PROTEIN 6.5 g/dL (6.3-8.2)
--- NOTE | 2019-08-09 19:37 | RADIOLOGY REPORT (SQ) ---
EXAM DESCRIPTION: CT ABD/PELVIS WITH IV ONLY COMPLETED DATE/TIME: 08/09/2019 7:09 pm REASON FOR STUDY: RLQ pain COMPARISON: None. TECHNIQUE: CT scan of the abdomen and pelvis performed using helical scanning technique with dynamic intravenous contrast injection. No oral contrast. Images reviewed with lung, soft tissue, and bone windows. Reconstructed coronal and sagittal MPR images reviewed. Delayed images for evaluation of the urinary system also acquired. All images stored on PACS. All CT scanners at this facility use dose modulation, iterative reconstruction, and/or weight based d osing when appropriate to reduce radiation dose to as low as reasonably achievable (ALARA). [facility]: Dose Right [facility]: CareDose [facility]: Dose Right [facility]: Teradose 4D [facility]: [facility] CONTRAST TYPE AND DOSE: contrast/concentration: Isovue 350.00 mg/ml; Total Contrast Delivered: 100.0 ml; Total Saline Delivered: 72.0 ml RENAL FUNCTION: BUN 15 creatinine 0.7 RADIATION DOSE: CT Rad equipment meets quality standard of care and radiation dose reduction techniq ues were employed. CTDIvol: 20.5 - 21.1 mGy. DLP: 2438 mGy-cm.. LIMITATIONS: None. FINDINGS: LOWER CHEST: No significant findings. No nodules or infiltrates. LIVER: A few small cysts are present. No solid masses. SPLEEN: Normal size. No focal lesions. PANCREAS: No masses. No significant calcifications. No adjacent inflammation or peripancreatic fluid collections. Pancreatic duct not dilated. GALLBLADDER: No identified stones by CT criteria. No inflammatory changes to suggest cholecystitis. ADRENAL GLANDS: No significant masses or asymmetry. RIGHT KIDNEY AND URETER: No solid masses. No significant calcifications. No hydronephrosis or hyd roureter. LEFT KIDNEY AND URETER: No solid masses. No significant calcifications. No hydronephrosis or hydr oureter. AORTA AND VESSELS: No aneurysm. No dissection. Renal arteries, SMA, celiac without stenosis. RETROPERITONEUM: No retroperitoneal adenopathy, hemorrhage or masses. BOWEL AND PERITONEAL CAVITY: No masses or inflammatory changes. No free fluid or peritoneal masses. APPENDIX: Normal. PELVIS: No mass. No free fluid. Normal bladder. ABDOMINAL WALL: No masses. No hernias. BONES: Rods are present in the thoracic and lumbar spine. OTHER: No other significant finding. IMPRESSION: No acute findings in the abdomen or pelvis. There are few small hepatic cysts. Surgica l changes are present in the spine. TECHNICAL DOCUMENTATION: JOB ID: [id number] Quality ID # [id number]: Final reports with documentation of one or more dose reduction techniques (e.g., Au tomated exposure control, adjustment of the mA and/or kV according to patient size, use of iterative reconstruction technique) 2010 [employer]- All Rights Reserved Reading location - IP/workstation name: [email or web address]
[2019-08-09 20:28] VITALS: BP 140/73
== END 2019-08-09 20:34 | disposition home or self-care (01) ==
LOC: ER 13:05
DX: R10.30 Lower abdominal pain, unspecified (principal); R10.31 Right lower quadrant pain; R11.0 Nausea; E66.01 Morbid (severe) obesity due to excess calories; I25.10 Atherosclerotic heart disease of native coronary artery without angina pectoris; E78.00 Pure hypercholesterolemia, unspecified; I10 Essential (primary) hypertension; E11.9 Type 2 diabetes mellitus without complications; Z98.1 Arthrodesis status; Z85.038 Personal history of other malignant neoplasm of large intestine
CPT/HCPCS: 36415; 74177; 80053; 81001; 85025; 99284

== ENCOUNTER 2019-11-26 09:26 | Emergency (ER) | payer MEDICARE, OTHER ==
[2019-11-26 09:38] VITALS: BP 132/63
--- NOTE | 2019-11-26 09:51 | ER Document Report ---
HPI - HPI Time Seen by Provider: 11/26/19 09:44 Notes: Patient is a 54-year-old male with a history of chronic low back pain with previous surgeries resulting in chronic nerve issues to his legs who presents complaining of left foot and ankle swelling status post fall with pain associated. Patient states that he usually does not detect significant amounts of pain, but does notice that his foot and ankle are bothersome and swollen. Patient states that he rolled his ankle/foot last night. Patient states that this is not an uncommon occurrence with his chronic back issues. He does take pain medicine at home regularly. Denies any headache, fever, head injury, neck pain, changes in vision/speech/mentation/hearing, URI, sore throat, chest pain, palpitations, syncope, cough, shortness of breath, wheeze, dyspnea, abdominal pain, nausea/vomiting/diarrhea, urinary retention, dysuria, hematuria, loss of control of bowel or bladder, saddle anesthesia, muscle paralysis, or rash. - ROS Systems Reviewed and Negative: Yes All other systems reviewed and negative Past Medical History - Social History Smoking Status: Unknown if Ever Smoked Family History: Reviewed & Not Pertinent - Past Medical History Cardiac Medical History: Reports: Hx Coronary Artery Disease - had cath 2 yrs ago with a 40% lesion only, Hx Hypercholesterolemia, Hx Hypertension Denies: Hx Heart Attack Pulmonary Medical History: Reports: Hx Asthma - say asthma but I have scarring from radiation Denies: Hx Bronchitis, Hx COPD, Hx Pneumonia Neurological Medical History: Denies: Hx Cerebrovascular Accident, Hx Seizures Endocrine Medical History: Reports: Hx Diabetes Mellitus Type 2 Renal/ Medical History: Denies: Hx Peritoneal Dialysis Malignancy Medical History: Reports Hx Colorectal Cancer - dx 2011, 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 Denies: Hx Pacemaker - Immunizations Hx Diphtheria, Pertussis, Tetanus Vaccination: Yes Vertical Provider Document - CONSTITUTIONAL Agree With Documented VS: Yes Notes: PHYSICAL EXAMINATION: GENERAL: Well-appearing, well-nourished and in no acute distress. LUNGS: Breath sounds clear to auscultation bilaterally and equal. No wheezes rales or rhonchi. HEART: Regular rate and rhythm without murmurs, rubs, gallops. Musculoskeletal: Lt foot/ankle: + swelling to ankle/foot noted. No ecchymosis or deformity. FROM to passive/active. Strength 5+/5. N/V intact distal. + tenderness to the lateral malleolus and lateral foot. Achilles intact. Lis Franc maneuver neg. Anterior drawer neg. Extremities: No cyanosis, clubbing, or edema b/l. Peripheral pulses 2+. Capillary refill less than 3 seconds. NEUROLOGICAL: Normal speech, limping gait. Normal sensory, motor exams PSYCH: Normal mood, normal affect. SKIN: Warm, Dry, normal turgor, no rashes or lesions noted. - INFECTION CONTROL TRAVEL OUTSIDE OF THE [place] IN LAST 30 DAYS: No Course - Re-evaluation Re-evalutation: 11/26/19 Patient is an afebrile, well-hydrated, 54ear-old male who presents to the ED with a fracture to the left fifth proximal metatarsal. Vitals are acceptable without any significant tachycardia, tachypnea, or hypoxia. PE is otherwise unremarkable for any neurovascular compromise, obvious tendon/ligament rupture, open fracture, septic joint. See XR result. Splint applied today. Patient declined any Tylenol or Motrin at this time. Patient prefers to use his walker that he has with him rather than crutches. Patient is nontoxic-appearing. No other labs or imaging warranted at this time based on H&P. Conservative measures otherwise for symptoms. Recheck with your PCM in 3-5 days. Call orthopedics to schedule an appointment for further evaluation and management. Return to the ED with any worsening/concerning symptoms otherwise as reviewed in discharge. Patient is in agreement. - Vital Signs Vital signs: Temp Pulse Resp BP Pulse Ox 98.4 F 88 18 132/63 H 99 11/26/19 09:37 11/26/19 09:37 11/26/19 09:37 11/26/19 09:37 11/26/19 09:37 Procedures - Immobilization Left Foot Pre-Proc Neuro Vasc Exam: Normal Immobilizer type: Posterior ankle Performed by: PCT Post-Proc Neuro Vasc Exam: Normal, Unchanged from pre-exam Discharge - Discharge Clinical Impression: Nondisplaced fracture of fifth left metatarsal bone Qualifiers: Encounter type: initial encounter Fracture type: closed Qualified Code(s): S92.355A - Nondisplaced fracture of fifth metatarsal bone, left foot, initial encounter for closed fracture Condition: Stable Disposition: HOME, SELF-CARE Additional Instructions: Rest, Ice, Compression, Elevation Tylenol/ibuprofen as needed F/u with your PCP in 3-5 days for a recheck Call orthopedics/podiatry to schedule an appointment for further evaluation and management Return to the ED with any worsening symptoms and/or development of fever, headache, chest pain, palpitations, syncope, shortness of breath, trouble breathing, abdominal pain, n/v/d, muscle weakness/paralysis, numbness/tingling, swelling, redness, or other worsening symptoms that are concerning to you. Forms: Elevated Blood Pressure Referrals: ABIODUN BAHENA PA-C [Primary Care Provider] - Follow up as needed [facility] [Provider Group] - Follow up as needed SHAMIKA DELGADO JR, DO [ACTIVE PROVISIONAL STAFF] - Follow up as needed BARNEY BARAKAT DPM [ACTIVE STAFF] - Follow up as needed
--- NOTE | 2019-11-26 10:43 | RADIOLOGY REPORT (SQ) ---
EXAM DESCRIPTION: ANKLE LEFT COMPLETE COMPLETED DATE/TIME: 11/26/2019 10:30 am REASON FOR STUDY: left foot/ankle pain s/p injury COMPARISON: None. NUMBER OF VIEWS: Three views. TECHNIQUE: AP, lateral, and oblique radiographic images acquired of the left ankle. LIMITATIONS: None. FINDINGS: MINERALIZATION: Normal. BONES: No acute fracture or dislocation. No worrisome bone lesions. JOINTS: No effusions. SOFT TISSUES: No soft tissue swelling. No foreign body. OTHER: No other significant finding. IMPRESSION: NEGATIVE STUDY OF THE LEFT ANKLE. NO RADIOGRAPHIC EVIDENCE OF ACUTE INJURY. TECHNICAL DOCUMENTATION: JOB ID: [id number] [employer]- All Rights Reserved Reading location - IP/workstation name: [email or web address]
--- NOTE | 2019-11-26 10:49 | RADIOLOGY REPORT (SQ) ---
EXAM DESCRIPTION: FOOT LEFT COMPLETE COMPLETED DATE/TIME: 11/26/2019 10:30 am REASON FOR STUDY: left foot/ankle pain s/p injury COMPARISON: None. NUMBER OF VIEWS: Three views. TECHNIQUE: AP, lateral and oblique radiographic images acquired of the left foot. LIMITATIONS: None. FINDINGS: MINERALIZATION: Normal. BONES: There is a fracture of the base of the 5th metatarsal. There is a transverse and longitudinal component. No displacement. JOINTS: No effusions. SOFT TISSUES: No soft tissue swelling. No foreign body. OTHER: No other significant finding. IMPRESSION: Fracture of the base of the 5th metatarsal. TECHNICAL DOCUMENTATION: JOB ID: [id number] [employer]- All Rights Reserved Reading location - IP/workstation name: [email or web address]
== END 2019-11-26 11:22 | disposition home or self-care (01) ==
LOC: ER 09:26
PROC: 2W3RX1Z Immobilization of Left Lower Leg using Splint (ICD-10-PCS; principal; 2019-11-26)
DX: S92.355A Nondisplaced fracture of fifth metatarsal bone, left foot, initial encounter for closed fracture (principal); M54.5 Low back pain; G89.29 Other chronic pain; M79.89 Other specified soft tissue disorders; M79.672 Pain in left foot; M25.572 Pain in left ankle and joints of left foot; W19.XXXA Unspecified fall, initial encounter; I25.10 Atherosclerotic heart disease of native coronary artery without angina pectoris; I10 Essential (primary) hypertension; J45.909 Unspecified asthma, uncomplicated; E11.9 Type 2 diabetes mellitus without complications
CPT/HCPCS: 99283